=== PATIENT | male | born 1970 | race Caucasian/White ===

== ENCOUNTER 2018-06-14 06:29 | Emergency (ER) | payer MEDICAID ==
[2018-06-14] MEDS: CEFTRIAXONE 1 GM INJ IM (07:27)
[2018-06-14] MEDS: LIDOCAINE 1% (MPF) 5 ML VIAL INJ (07:40)
[2018-06-14] MEDS: LIDOCAINE 1% (MDV) 10 ML INJ INJ (07:42)
== END 2018-06-14 07:49 | disposition home or self-care (01) ==
LOC: FTE 06:29
DX: J02.9 Acute pharyngitis, unspecified (principal)
CPT/HCPCS: 96372; 99284-25

== ENCOUNTER 2018-09-22 06:19 | Emergency (ER) | payer MEDICAID ==
[2018-09-22 07:02] LABS: ADD MAN DIFF? NO
[2018-09-22 07:04] LABS: WHITE BLOOD COUNT 13.3 10^3/ul (4.8-10.8)
[2018-09-22 07:04] LABS: BASOPHILS % 0.2 % (0.0-2.0); HEMATOCRIT 41.7 % (42.0-52.0); HEMOGLOBIN 14.4 g/dl (14.0-18.0); LYMPHOCYTES # 1.4 10^3/ul (0.8-2.9); LYMPHOCYTES % 10.7 % (15.0-51.0); MEAN CORPUSCULAR HEMOGLOBIN 28.2 pg (29.0-33.0); MEAN CORPUSCULAR HGB CONC 34.5 g/dl (32.0-37.0); MEAN CORPUSCULAR VOLUME 81.6 fl (82.0-101.0); MEAN PLATELET VOLUME 11.5 fl (7.4-10.4); MONOCYTE # 0.8 10^3/ul (0.3-0.9); MONOCYTES % 5.9 % (0.0-11.0); NEUTROPHILS % 82.4 % (39.0-77.0); PLATELET COUNT 138 10^3/UL (140-415); POSITIVE DIFF @See below; RED BLOOD COUNT 5.11 10^6/ul (4.70-6.10); RED CELL DISTRIBUTION WIDTH 12.5 % (11.5-14.5)
[2018-09-22] MEDS: SODIUM CHLORIDE 0.9% 1L BAG IV* (07:18)
[2018-09-22] MEDS: IBUPROFEN 800 MG TAB PO (07:19)
[2018-09-22] MEDS: CEFEPIME 2GM/50 ML (PMX) 50 ML IVPB (07:19)
[2018-09-22 07:24] LABS: INR 1.16; PT RATIO 1.2
[2018-09-22 07:25] LABS: ALANINE AMINOTRANSFERASE 25 IU/L (13-69); ALBUMIN 4.2 g/dl (3.3-4.9); ALKALINE PHOSPHATASE 79 IU/L (42-121); ANION GAP 13 (5-13); ASPARTATE AMINO TRANSFERASE 28 IU/L (15-46); BILIRUBIN,INDIRECT 0.6 mg/dl (0-1.1); BILIRUBIN,TOTAL 0.6 mg/dl (0.2-1.3); BLOOD UREA NITROGEN 12 mg/dl (7-20); CARBON DIOXIDE 26 mmol/L (21-31); CHLORIDE 101 mmol/L (97-110); CREATININE 1.12 mg/dl (0.61-1.24); Estimated GFR > 60 mL/min (>60); GLUCOSE 148 mg/dl (70-220); PARTIAL THROMBOPLASTIN TIME 32.5 Sec (23.0-35.0); SODIUM 140 mmol/L (135-144); TOTAL PROTEIN 7.7 g/dl (6.1-8.1)
[2018-09-22 07:36] LABS: TROPONIN-I < 0.012 ng/ml (0.000-0.120)
[2018-09-22 07:39] LABS: ADD UMIC YES; UR ASCORBIC ACID NEGATIVE (NEGATIVE); UR BILIRUBIN (Dip) NEGATIVE (NEGATIVE); UR BLOOD (Dip) NEGATIVE (NEGATIVE); UR CLARITY CLEAR (CLEAR); UR COLOR YELLOW (YELLOW); UR GLUCOSE (Dip) NEGATIVE (NEGATIVE); UR KETONES (Dip) NEGATIVE (NEGATIVE); UR LEUKOCYTE ESTERASE (Dip) NEGATIVE Leu/ul (NEGATIVE); UR NITRITE (Dip) NEGATIVE (NEGATIVE); UR RBC 1 /HPF (0-5); UR SPECIFIC GRAVITY (Dip) 1.013 (1.003-1.030); UR TOTAL PROTEIN (Dip) 1+ mg/dl (NEGATIVE); UR UROBILINOGEN (Dip) 1+ mg/dL (NEGATIVE); UR WBC 2 /HPF (0-5)
[2018-09-22] MEDS: IOHEXOL 300MG/ML 150 ML BTL (07:51)
[2018-09-22] MEDS: SOD CHLORIDE 0.9% 100 ML (07:51)
[2018-09-22] MEDS: VANCOMYCIN 1 GM (PMX) 250 ML IVPB (08:10)
[2018-09-22] MEDS: DEXAMETHASONE 10 MG/ML 1 ML INJ IV (08:50)
[2018-09-22] MEDS: ACETAMINOPHEN 500 MG TAB PO (08:50)
== END 2018-09-22 10:40 | disposition home or self-care (01) ==
LOC: E/R 06:19
DX: J02.0 Streptococcal pharyngitis (principal); R40.2142 Coma scale, eyes open, spontaneous, at arrival to emergency department; R40.2362 Coma scale, best motor response, obeys commands, at arrival to emergency department; A40.0 Sepsis due to streptococcus, group A
CPT/HCPCS: 36415; 70491; 71045; 80053; 81001; 83605; 84484; 85025; 85610; 85730; 87040; 87070; 87086; 87400; 87880; 93005; 96365; 96366; 96367; 96375; 99285-25

== ENCOUNTER 2018-10-04 05:56 | Emergency (ER) | payer MEDICAID | END 2018-10-04 06:41 | disposition home or self-care (01) | LOC: FTE 06:41 | DX: J02.9 Acute pharyngitis, unspecified (principal) | CPT/HCPCS: 99282; Z7502 ==